=== PATIENT | female | born 2000 | race African-American/Black ===

== ENCOUNTER 2024-05-21 19:26 | Emergency (ER) | payer SELFPAY | END 2024-05-21 23:22 | disposition home or self-care (01) | LOC: ERS 19:26 | DX: R11.2 Nausea with vomiting, unspecified (principal); F17.210 Nicotine dependence, cigarettes, uncomplicated | CPT/HCPCS: 80053; 81001; 83690; 84703; 85025; 96374; 96375; J1885; J2405 ==